=== PATIENT | male | born 1985 | race Caucasian/White ===

== ENCOUNTER 2020-02-19 14:45 | Emergency (ER) | payer MEDICAID, SELFPAY ==
[2020-02-19 14:46] VITALS: BP 120/87; PULSE 113; RESP 22; TEMP 36.7; O2SAT 98; BMI 25.8
--- NOTE | 2020-02-19 15:20 | [facility].EDABDPAI ---
ED Disposition Clinical Impression: PUD (peptic ulcer disease) Disposition: Home, Self-Care Condition on Discharge: Good Instructions: DI for Peptic Ulcer Prescriptions: Famotidine [Acid Controller] 20 mg PO DAILY #15 tab Prescription Printed Sucralfate [Carafate 1gm Tab] 1 gm PO ACHS #20 tab Prescription Printed Referrals: PCP,No [Primary Care Provider] - Jhoan Cruz MD [Staff Physician] - Sabino Lara MD [Staff Physician] - - Critical Care Critical Care Time: No Attestation: On , the high probability of a clinically significant, sudden or life threatening deterioration of the following system(s) required my full and direct attention, intervention and personal management. The time I documented below is in addition to time spent performing reported procedures but includes the following listed in this critical care notation. Medical Decision Making - Medical Records Medical records reviewed: Yes: I reviewed the patient's medical records. - [place] Inquiry Pt receiving controlled substance: No Vital Signs: 02/19/20 14:46 Temperature 98.1 F Temperature Source Oral Pulse Rate [Radial] 113 H Respiratory Rate 22 Blood Pressure [Right Arm] 120/87 Blood Pressure Mean [Right Arm] 98 Blood Pressure Position [Right Arm] Sitting 02 Sat by Pulse Oximetry 98 Oxygen Delivery Method Room Air - Lab Data Lab Results 02/19/20 15:39: WBC 10.2, RBC 5.74, Hgb 17.6, Hct 52.7 H, MCV 91.7, MCH 30.7, MCHC 33.4, RDW 13.1, Plt Count 329, MPV 7.4, Neut % (Auto) 75.2, Lymph % (Auto) 17.6, Villalba % (Auto) 5.8, Eos % (Auto) 0.7, Baso % (Auto) 0.6, Neut # (Auto) 7.6, Lymph # (Auto) 1.8, Villalba # (Auto) 0.6, Eos # (Auto) 0.1, Baso # (Auto) 0.1 02/19/20 15:39: Sodium 139, Potassium 4.2, Chloride 101, Carbon Dioxide 28, Anion Gap 14.2, BUN 19, Creatinine 1.10, Estimated Creat Clear 103, Estimated GFR 77, Est GFR ( Amer) 93, Glucose 118 H, Calcium 9.8, Total Bilirubin 0.4, AST 40, ALT 57, Alkaline Phosphatase 132 H, Total Protein 8.1, Albumin 4.8, Globulin 3.3 H, Albumin/Globulin Ratio 1.5, Lipase 56 Result diagrams: 02/19/20 15:39 02/19/20 15:39 Orders (Tests/Meds): ED MEDICATIONS Generic Name Dose Route Start Last Admin Trade Name Freq PRN Reason Stop Dose Admin Sodium Chloride 8 ml 02/19/20 15:12 02/19/20 15:24 Sodium Chloride 0.9% 10ml Vial IV 03/20/20 15:11 8 ml NEEDED PRN Administration dilute pepcid Discontinued Medications Generic Name Dose Route Start Last Admin Trade Name Freq PRN Reason Stop Dose Admin Diphenhydramine HCl 25 mg 02/19/20 15:12 02/19/20 15:23 Diphenhydramine 50mg/Ml Vial IV 02/19/20 15:13 25 mg ONCE ONE Administration Famotidine 20 mg 02/19/20 15:12 02/19/20 15:24 Famotidine 20mg/2ml Vial IV 02/19/20 15:13 20 mg ONCE ONE Administration Sodium Chloride 1,000 mls @ 999 mls/hr 02/19/20 15:15 02/19/20 15:24 Sod Chlor 0.9% 1000ml Bag IV 02/19/20 16:15 999 mls/hr .Q1H1M MARSHALL Administration Ondansetron HCl 4 mg 02/19/20 15:12 02/19/20 15:23 Ondansetron 4mg/2ml Vial IV 02/19/20 15:13 4 mg ONCE ONE Administration ORDERS Category Date Time Status CT abdomen pelvis wo con Stat Cat Scan 02/19/20 15:34 Taken - CT Data CT Scan: Abdomen, Pelvis Time Received: 16:[address] Reviewed: Yes: I have reviewed the patient's CT results, I have viewed the radiologist's interpretation Findings Narrative: No evidence of acute abdominal or pelvic pathology. Small hiatal hernia. - Reevaluation(s) Time: 16:54 Reevaluation #1: On reevaluation, patient is feeling much better. Repeat abdominal exam is benign. Tolerating oral intake. Symptoms consistent with peptic ulcer disease. Patient will be given GI follow-up. Given strict return precautions. Verbalized understanding. Medical Decision Narrative: This is a 34-year-old male presented to the emergency department with epigastric discomfort. Patient symp
--- NOTE | 2020-02-19 15:34 | CT_ITS ---
PROCEDURE: CT ABDOMEN PELVIS WO CON CLINICAL INDICATION: pain Right flank pain for 1 week, recent dark stools COMPARISON: No exams were available for comparison TECHNIQUE: Axial images obtained with sagittal and coronal reformats. All CT scans at the facility use one or more dose reduction, viz: automated exposure control, ma/kV adjustment per patient size (including targeted exams where dose is matched to indication, i.e. head), or iterative reconstruction technique. FINDINGS: Lower thorax: The lower lung rodriguez are clear and there is no pleural fluid. ABDOMEN: Liver: No masses or biliary dilatation. Gallbladder: The gallbladder is somewhat contracted but shows no obvious stones or sludge. Pancreas: No masses or peripancreatic fluid collections. Spleen: unremarkable Adrenals: unremarkable Kidneys/ureters: The kidneys are normal in size and there are no calculi and there is no obstructive uropathy of either kidney. ABDOMEN & PELVIS: Stomach bowel: There is a moderate size sliding hiatal hernia. The stomach is moderately distended with ingested food particles and air but otherwise appears normal. The duodenal sweep and small bowel appear normal. There is scattered stool and gas seen throughout the colon. There is some oral contrast or possibly ingested and acids mixed with stool in the cecum and ascending colon. Peritoneum: Unremarkable Lymph nodes: No enlarged lymph nodes apparent. Vasculature: No evidence of abdominal aortic aneurysm. No retroperitoneal hemorrhage evident. Bones: No acute fracture PELVIS: Reproductive: unremarkable Bladder: The urinary bladder is partially decompressed but otherwise appears normal. The prostate is normal. Appendix: The appendix is normal in caliber and there are no findings to suggest appendicitis. IMPRESSION: No acute or pelvic pathology identified Dictated by: Dr. Natalio Carmona MD 02/19/2020 17:34 Dr. Natalio Carmona MD in [place] 02/19/2020 17:34
[2020-02-19 15:51] LABS: Chloride 101 mmol/L (98-107); Potassium 4.2 mmoL/L (3.5-5.1); Sodium 139 mmol/L (136-145)
[2020-02-19 15:52] LABS: Basophils # 0.1 K/mm3 (0-0.2); Basophils % 0.6 % (0.1-2.0); Eosinophils # 0.1 K/mm3 (0.0-0.4); Eosinophils % 0.7 % (0.1-12.0); Hematocrit 52.7 % (42.0-52.0); Hemoglobin 17.6 g/dL (14.1-18.0); Lymphocytes # 1.8 K/mm3 (0.7-4.5); Lymphocytes % 17.6 % (10-50); Mean Corpuscular HGB Conc 33.4 g/dL (31.8-35.4); Mean Corpuscular Hemoglobin 30.7 pg (27.0-31.2); Mean Corpuscular Volume 91.7 fl (80-94); Mean Platelet Volume 7.4 fl (7.4-10.4); Monocytes # 0.6 K/mm3 (0.1-1.0); Monocytes % 5.8 % (1.7-9.3); Neutrophils # 7.6 K/mm3 (1.8-7.8); Neutrophils % 75.2 % (37.0-80.0); Platelet Count 329 K/mm3 (142-424); Red Blood Count 5.74 M/mm3 (4.60-6.20); Red Cell Distribution Width 13.1 % (11.5-17.5); White Blood Count 10.2 K/mm3 (4.8-10.8)
[2020-02-19 15:53] LABS: Alanine Aminotransferase 57 U/L (12-78); Aspartate Amino Transferase 40 U/L (17-59); Blood Urea Nitrogen 19 mg/dl (9-20); Creatinine Clearance Estimated 103 mL/min (50-200); Estimated Glomerular Filt Rate 77 ml/min (>60); GFR (African American) 93 ML/MIN (>60)
[2020-02-19 15:54] LABS: Albumin Level 4.8 g/dl (3.5-5.0); Albumin/Globulin Ratio 1.5 (1.1-1.8); Alkaline Phosphatase 132 U/L (38-126); Anion Gap 14.2 mEq/L (5-15); Bilirubin,Total 0.4 mg/dl (0.2-1.3); Calcium 9.8 mg/dl (8.4-10.2); Carbon Dioxide 28 mmol/L (22.0-30.0); Globulin 3.3 g/dL (1.3-3.2); Glucose 118 mg/dl (74-100); Lipase 56 U/L (23-300); Total Protein,Serum 8.1 g/dl (6.3-8.2)
[2020-02-19 17:16] VITALS: BP 115/87; PULSE 98; RESP 17; TEMP 36.7; O2SAT 98
== END 2020-02-19 17:33 | disposition home or self-care (01) ==
PROVIDERS: Emergency Provider Emergency Medicine
DX: K27.9 Peptic ulcer, site unspecified, unspecified as acute or chronic, without hemorrhage or perforation (principal)
CPT/HCPCS: 74176; 80053; 83690; 85025; 96365; 96375; 99282; J2405